=== PATIENT | female | born 1980 | race African-American/Black ===

== ENCOUNTER 2016-09-04 16:02 | Emergency (ER) | payer OTHER ==
[2016-09-04 15:36] LABS: URINE SOURCE CLEAN CATCH
[2016-09-04 15:44] LABS: URINE APPEARANCE CLOUDY; URINE BILIRUBIN NEG (NEG); URINE BLOOD 1+ (NEG); URINE COLOR YELLOW; URINE GLUCOSE NEG (NEG); URINE KETONE TRACE (NEG); URINE LEUKOCYTE ESTERASE 3+ (NEG); URINE NITRATE POS (NEG); URINE PH 5.5 (5-8); URINE PROTEIN NEG (NEG); URINE SPECIFIC GRAVITY 1.024 (1.003-1.035)
[2016-09-04 15:45] LABS: CULTURE INDICATED? YES; URBCS1 AUWI 0-2 /[HPF] (0-2); URINE BACTERIA AUWI 3+ (NEGATIVE); URINE SQUAMOUS EPITHELIAL CELL NONE SEEN /[HPF]; UWBCS1 AUWI INNUM (0-5)
[~2016-09-04 16:02] MED LIST: CIPRO PO; DOXYCYCLINE HY100 M3 PO; FLAGYL PO; PHENERGAN PO; PHENERGAN25 MG PO; PRENATAL MULITV1 TAB PO; PRENATAL1 TA1 PO; TRAMADOL HCL100 MG PO; VICODIN PO
[2016-09-06 21:53] LABS: CHLAMYDIA TRACH Not Detected (Not Detected); N GONOR Not Detected (Not Detected)
== END 2016-09-04 16:20 | disposition home or self-care (01) ==
LOC: CED 16:02
PROVIDERS: Physician Assistant
DX: N30.00 Acute cystitis without hematuria (principal); N95.2 Postmenopausal atrophic vaginitis; F17.210 Nicotine dependence, cigarettes, uncomplicated; Z98.890 Other specified postprocedural states
CPT/HCPCS: 81003; 84703; 87086; 87088; 87186; 87491; 87591; 87808; 87905; 99284; J0696

== ENCOUNTER 2016-11-15 19:47 | Emergency (ER) | payer OTHER ==
[2016-11-15 21:12] LABS: URINE SOURCE CLEAN CATCH
[2016-11-15 21:26] LABS: URINE APPEARANCE CLOUDY; URINE BILIRUBIN NEG (NEG); URINE BLOOD NEG (NEG); URINE COLOR YELLOW; URINE GLUCOSE NEG (NEG); URINE KETONE NEG (NEG); URINE LEUKOCYTE ESTERASE 2+ (NEG); URINE NITRATE POS (NEG); URINE PROTEIN NEG (NEG); URINE SPECIFIC GRAVITY 1.022 (1.003-1.035)
[2016-11-15 21:32] LABS: CULTURE INDICATED? YES; URBCS1 AUWI 0-2 /[HPF] (0-2); URINE BACTERIA AUWI 4+ (NEGATIVE); URINE SQUAMOUS EPITHELIAL CELL MOD /[HPF]; UWBCS1 AUWI 25-50 (0-5)
[2016-11-19 09:03] LABS: CHLAMYDIA TRACH Not Detected (Not Detected); N GONOR Not Detected (Not Detected)
== END 2016-11-16 00:10 | disposition home or self-care (01) ==
LOC: CED 19:47
PROVIDERS: Emergency Medicine
DX: N76.0 Acute vaginitis (principal); F17.210 Nicotine dependence, cigarettes, uncomplicated; Z87.440 Personal history of urinary (tract) infections
CPT/HCPCS: 81003; 84703; 87086; 87088; 87186; 87491; 87591; 87808; 87905; 96372; 99283; J0696